=== PATIENT | male | born 1990 | race African-American/Black ===

== ENCOUNTER 2016-10-02 08:18 | Emergency (ER) | payer MEDICAID ==
[~2016-10-02] VITALS: Ht 175.3 cm; Wt 95.3 kg
[~2016-10-02 08:18] MED LIST: DAYQUIL COLD/FL1 SGL PO; PAXIL30 MG PO; PROAIR HFA0.09 MG/Ac IH; SEROQUEL100 MG PO; SEROQUEL300 MG PO; XANAX1 MG PO
[2016-10-02 08:22] VITALS: BP 116/66
--- NOTE | 2016-10-02 09:13 | NUR ---
PT AMBULATED TO BED 3.
--- NOTE | 2016-10-02 09:57 | NUR ---
PT AMBULATED OUT OF ROOM 3---WAS SEEN WALKING OUT OF THE ER
== END 2016-10-02 09:57 | disposition left against medical advice (07) ==
LOC: MED 08:18
DX: F41.9 Anxiety disorder, unspecified (principal); Z53.21 Procedure and treatment not carried out due to patient leaving prior to being seen by health care provider

== ENCOUNTER 2017-01-21 06:05 | Emergency (ER) | payer MEDICAID ==
[~2017-01-21] VITALS: Ht 175.3 cm; Wt 89.4 kg
[~2017-01-21 06:05] MED LIST changes: +ALBU-136 IH; +ALPR1TAB2 PO; -DAYQUIL COLD/FL1 SGL PO; +PARO30TA22 PO; -PAXIL30 MG PO; -PROAIR HFA0.09 MG/Ac IH; +QUET100T PO; -SEROQUEL100 MG PO; -SEROQUEL300 MG PO; -XANAX1 MG PO; +[UNRECOGNIZED DRUG - CODE] PO
[2017-01-21 06:11] VITALS: BP 123/71
--- NOTE | 2017-01-21 06:17 | NUR ---
PT TAKEN TO BED 5
--- NOTE | 2017-01-21 06:19 | NUR ---
Dr. Pham evaluating patient at bedside.
--- NOTE | 2017-01-21 06:20 | NUR ---
PATIENT IS A 26 Y/O MALE WHO PRESENTS TO THE ED C/O OF SORE THROAT. PATIENT REPORTS 9/10 ACHING PAIN THAT RADIATES ALL OVER THE BODY. PT REPORTS HOT SENSATION OVER BODY, HEADACHE, AND COUGHING X4 DAYS. PATIENT REPORTS SOB, DENIES N/V/D. PT AAOX4, RR EVEN/UNLABORED. PT REPOSITIONED FOR COMFORT, BED IN LOWEST POSITION. ER MD DR. GRAMAJO NOTIFIED. WILL CONTINUE TO MONITOR.
--- NOTE | 2017-01-21 06:25 | NUR ---
Patient discharged with v/s stable. Written and verbal after care instructions given and explained. Patient alert, oriented and verbalized understanding of instructions. Ambulatory with steady gait. All questions addressed prior to discharge. ID band removed. Patient advised to follow up with PMD. Rx of CODEINE/PROMETHAZINE 10MG-6.25MG/5ML & AZITHROMYCIN 250 MG given. Patient educated on indication of medication including possible reaction and side effects. Opportunity to ask questions provided and answered.
[2017-01-21 06:26] VITALS: BP 120/75
== END 2017-01-21 06:25 | disposition home or self-care (01) ==
LOC: MED 06:05
DX: J02.9 Acute pharyngitis, unspecified (principal); R09.89 Other specified symptoms and signs involving the circulatory and respiratory systems; F17.210 Nicotine dependence, cigarettes, uncomplicated; Z88.8 Allergy status to other drugs, medicaments and biological substances; Z91.018 Allergy to other foods
CPT/HCPCS: 99283

== ENCOUNTER 2017-03-26 13:38 | Emergency (ER) | payer MEDICAID ==
[~2017-03-26] VITALS: Ht 175.3 cm; Wt 88.9 kg
[2017-03-26 13:48] VITALS: BP 105/48
--- NOTE | 2017-03-26 13:52 | NUR ---
Patient to bed 08.
--- NOTE | 2017-03-26 14:04 | NUR ---
PATIENT PRESENTS TO ED WITH C/O NONPRODUCTIVE COUGH FOR 5 DAY . DENIES N/V/D; SKIN IS PINK/WARM/DRY; AAOX4 WITH EVEN AND STEADY GAIT; LUNGS CLEAR BL; HR EVEN AND REGULAR; PT DENIES ANY FEVER, CP, SOB AT THIS TIME; PATIENT STATES PAIN OF 0/10 AT THIS TIME; VSS; PATIENT POSITIONED FOR COMFORT; HOB ELEVATED; BEDRAILS UP X2; BED DOWN. ER MD MADE AWARE OF PT STATUS.
[2017-03-26] MEDS ORDERED: ALBUTEROL SULFATE/IPRATROPIU 3 ML SOL IH ONE (14:15)
[2017-03-26] MEDS ORDERED: predniSONE 20 MG TAB PO ONE (14:15)
--- NOTE | 2017-03-26 14:29 | NUR ---
Respiratory Therapist at bedside for respiratory intervention.
[2017-03-26 15:48] VITALS: BP 105/48
--- NOTE | 2017-03-26 15:49 | NUR ---
Patient discharged with v/s stable. Written and verbal after care instructions given and explained. Patient alert, oriented and verbalized understanding of instructions. Ambulatory with steady gait. All questions addressed prior to discharge. ID band removed. Patient advised to follow up with PMD. Rx of PREDNISONE, [facility] TUSSIN LONG ACTING COUGH SYRUP, ALBUTEROL given. Patient educated on indication of medication including possible reaction and side effects. Opportunity to ask questions provided and answered.PATIENT REFUSED TO TAKE PRESCRIPTIONS FOR PREDNISONE AND TUSSIN
== END 2017-03-26 15:49 | disposition home or self-care (01) ==
LOC: MED 13:38
DX: J20.9 Acute bronchitis, unspecified (principal); J45.909 Unspecified asthma, uncomplicated; F17.210 Nicotine dependence, cigarettes, uncomplicated; Z88.8 Allergy status to other drugs, medicaments and biological substances; Z88.6 Allergy status to analgesic agent; Z71.6 Tobacco abuse counseling
CPT/HCPCS: 99283; J7512; J7620

== ENCOUNTER 2017-05-19 12:22 | Emergency (ER) | payer MEDICAID ==
[~2017-05-19] VITALS: Ht 175.3 cm; Wt 89.4 kg
[2017-05-19 12:32] VITALS: BP 104/65
--- NOTE | 2017-05-19 14:15 | NUR ---
called to a bed no answer
== END 2017-05-19 14:15 | disposition left against medical advice (07) ==
LOC: MED 12:22
DX: R05 Cough (principal); Z53.21 Procedure and treatment not carried out due to patient leaving prior to being seen by health care provider

== ENCOUNTER 2017-05-20 10:03 | Emergency (ER) | payer MEDICAID ==
[~2017-05-20] VITALS: Ht 175.3 cm; Wt 90.3 kg
[2017-05-20 10:35] VITALS: BP 112/55
--- NOTE | 2017-05-20 10:40 | NUR ---
Patient ambulated to OF#3 at this time.
--- NOTE | 2017-05-20 10:48 | NUR ---
PATIENT PRESENTS TO ED WITH COUGH, BODY ACHES, HEADACHE X4-5 DAYS; LWBS YESTERDAY HX: BRONCHITIS, ASTHMA . PT STATES I TOOK SOME MUCINEX,IBUPROFEN. WITH N/V/D; SKIN IS PINK/WARM/DRY; AAOX4 WITH EVEN AND STEADY GAIT; LUNGS CLEAR BL; HR EVEN AND REGULAR; PT DENIES ANY FEVER; PATIENT STATES PAIN OF 8/10 AT THIS TIME; PATIENT POSITIONED FOR COMFORT; HOB ELEVATED; BEDRAILS UP X2; BED DOWN. ER MD MADE AWARE OF PT STATUS.NO SOB NOTED AT THIS TIME.
--- NOTE | 2017-05-20 10:54 | NUR ---
PT STANDUP AT THIS TIME CLAIMED I WILL GO THE DOCTOR IS NOT GIVING ME WHAT I WANT, ENCOURAGE TO STAY BUT PT JUST STANDUP AND LEAVE, DIDNT LISTEN TO ENCOURAGEMENT, WILL INFORM MD.
--- NOTE | 2017-05-20 11:10 | NUR ---
PATIENT ELOPED FROM FACILITY. DISCHARGE INSTRUCTIONS NOT GIVEN TO PATIENT. DR. MALDONADO NOTIFIED.
== END 2017-05-20 10:54 | disposition left against medical advice (07) ==
LOC: MED 10:03
DX: B34.9 Viral infection, unspecified (principal); J45.909 Unspecified asthma, uncomplicated; Z76.5 Malingerer [conscious simulation]; F17.210 Nicotine dependence, cigarettes, uncomplicated; Z79.899 Other long term (current) drug therapy; Z88.8 Allergy status to other drugs, medicaments and biological substances
CPT/HCPCS: 99281

== ENCOUNTER 2017-06-04 12:33 | Emergency (ER) | payer MEDICAID ==
[~2017-06-04] VITALS: Ht 180.3 cm; Wt 93.0 kg
[2017-06-04 12:41] VITALS: BP 127/69
--- NOTE | 2017-06-04 12:45 | NUR ---
PT AMBULATED TO BRIDGET
--- NOTE | 2017-06-04 12:55 | NUR ---
PATIENT PRESENTS TO ED WITH COUGH 4-5 DAYS; HEADACHE HX BRONCHITIS; DENIES N/V/D; SKIN IS PINK/WARM/DRY; AAOX4 WITH EVEN AND STEADY GAIT; LUNGS CLEAR BL; HR EVEN AND REGULAR; PT DENIES ANY FEVER, CP, OR SOB AT THIS TIME; PATIENT STATES PAIN OF 8/10 AT THIS TIME; VSS; PATIENT POSITIONED FOR COMFORT; ER MD MADE AWARE OF PT STATUS.
--- NOTE | 2017-06-04 13:02 | NUR ---
AAO PT BEING EVALUATED BY DR WINTER
[2017-06-04] MEDS ORDERED: ALBUTEROL SULFATE/IPRATROPIU 3 ML SOL IH ONE (13:15)
[2017-06-04] MEDS ORDERED: DEXAMETHASONE 10 MG/ML VIAL IM ONE (13:15)
--- NOTE | 2017-06-04 13:24 | NUR ---
AAO PT REFUSE [facility] AND [facility] [place], DR WINTER NOTIFIED
--- NOTE | 2017-06-04 13:29 | NUR ---
PT REFUSED [facility] TX. DR WINTER AWARE AND ROBERT GORMAN AWARE. PT AWAKE AND ALERT. NO SOB OR DISTRESS NOTED.
[2017-06-04 13:40] VITALS: BP 131/84
--- NOTE | 2017-06-04 13:40 | NUR ---
Patient discharged with v/s stable. Written and verbal after care instructions given and explained. Patient alert, oriented and verbalized understanding of instructions. Ambulatory with steady gait. All questions addressed prior to discharge. ID band removed. Patient advised to follow up with PMD. Rx of PROMETHAZINE, METHYLPREDNISOLONE, ALBUTEROL given. Patient educated on indication of medication including possible reaction and side effects. Opportunity to ask questions provided and answered.
== END 2017-06-04 13:40 | disposition home or self-care (01) ==
LOC: MED 12:33
DX: J45.909 Unspecified asthma, uncomplicated (principal); Z91.018 Allergy to other foods; Z88.8 Allergy status to other drugs, medicaments and biological substances; F12.10 Cannabis abuse, uncomplicated
CPT/HCPCS: 99283; J1100; J7620

== ENCOUNTER 2017-06-07 07:26 | Emergency (ER) | payer MEDICAID ==
[~2017-06-07] VITALS: Ht 180.3 cm; Wt 91.8 kg
[2017-06-07 07:38] VITALS: BP 115/54
--- NOTE | 2017-06-07 07:40 | NUR ---
PATIENT PRESENTS TO ED WITH C/O NON PRODUCTIVE COUGH AND HEADACHE . PT STATES HE WAS SEEN ON 06/04 AND WAS GIVEN DISHCARGE MEDICATIONS BUT HIS COUGH DID NOT IMPROVE . DENIES N/V/D; SKIN IS PINK/WARM/DRY; AAOX4 WITH EVEN AND STEADY GAIT; LUNGS CLEAR BL; HR EVEN AND REGULAR; PT DENIES ANY FEVER, CP, SOB, AT THIS TIME; PATIENT STATES PAIN OF 7/10 AT THIS TIME; VSS; PATIENT POSITIONED FOR COMFORT; HOB ELEVATED; BEDRAILS UP X2; BED DOWN. ER MD MADE AWARE OF PT STATUS.
--- NOTE | 2017-06-07 08:30 | NUR ---
LI GARVIN. PATIENT LEFT WITHOUT TAKING HIS DISCHARGE PAPERS AND INSTRUCTIONS. ER DR DOCTOR FERRIS
== END 2017-06-07 08:59 | disposition left against medical advice (07) ==
LOC: MED 07:26
DX: J40 Bronchitis, not specified as acute or chronic (principal); Z76.5 Malingerer [conscious simulation]; F17.210 Nicotine dependence, cigarettes, uncomplicated; Z79.899 Other long term (current) drug therapy; Z88.8 Allergy status to other drugs, medicaments and biological substances
CPT/HCPCS: 71045; 99283; Q0092

== ENCOUNTER 2017-07-07 13:49 | Emergency (ER) | payer OTHER, MEDICAID ==
[~2017-07-07] VITALS: Ht 175.3 cm; Wt 95.4 kg
[2017-07-07 14:04] VITALS: BP 123/68
--- NOTE | 2017-07-07 14:04 | NUR ---
PT AMBULATES TO BED 11
--- NOTE | 2017-07-07 14:08 | NUR ---
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 ER MD MADE AWARE OF PT STATUS.
--- NOTE | 2017-07-07 14:27 | NUR ---
Patient being evaluated by DR MALDONADO at bedside.
[2017-07-07 14:51] VITALS: BP 111/55
--- NOTE | 2017-07-07 14:51 | NUR ---
Patient discharged with v/s stable. Written and verbal after care instructions given and explained. Patient alert, oriented and verbalized understanding of instructions. Ambulatory with steady gait. All questions addressed prior to discharge. ID band removed. Patient advised to follow up with PMD. Rx of NAPROSYN given. Patient educated on indication of medication including possible reaction and side effects. Opportunity to ask questions provided and answered. PT REFUSE TO SIGN DC PAPER & LEAVE WITH OUT DOCUMENTS. Addendum: 07/07/17 at 1458 by [facility] REPORT DR MALDONADO.
== END 2017-07-07 14:51 | disposition home or self-care (01) ==
LOC: MED 13:49
DX: S60.222A Contusion of left hand, initial encounter (principal); J45.909 Unspecified asthma, uncomplicated; Z91.018 Allergy to other foods; Z88.8 Allergy status to other drugs, medicaments and biological substances; X58.XXXA Exposure to other specified factors, initial encounter; Y93.89 Activity, other specified; Y92.89 Other specified places as the place of occurrence of the external cause; Y99.8 Other external cause status
CPT/HCPCS: 73130; 99284; Q0092

== ENCOUNTER 2017-08-27 10:08 | Emergency (ER) | payer MEDICAID, OTHER ==
[~2017-08-27] VITALS: Ht 175.3 cm; Wt 94.1 kg
[2017-08-27 10:16] VITALS: BP 119/65
--- NOTE | 2017-08-27 10:16 | NUR ---
Note undone in EDM - 08/27/17 at 1039 by [email or web address] 27 YO M BIB SELF W/ C/O ANXIETY AND RAN OUT OF ALPRAZOLAM. PT DENIED HAYES AT THIS TIME. DENIED NAUSEA AT THIS TIME. PT STATES HE HAS A DRY COUGH, BUT HAVE NOT BEEN ABLE TO ASSESS A COUGH AT THIS TIME. PT IS ON ANTIBIOTIC REGIMEN AT THIS TIME. PT A&O X4. GCS 15. CMS INTACT. ABD SOFT, NON-TENDER. PT TEXTING ON HIS PHONE DURING ASSESSMENT. STATES HE IS FEELING DEPRESSED, HAS NOT BEEN SHOWERING OR WANTING TO BE AROUND PEOPLE SINCE HE RAN OUT OF MEDS 4-5 DAYS AGO. STATES HE CANNOT GET AN APPT WITH HIS PCP FOR ANOTHER MONTH. STATES HE JUST WANTS MED REFILL. NORMAL PHYSICAL ASSESSMENT. ER MD MALDONADO NOTIFIED OF PT STATUS. PT NEEDS MET. SAFETY PRECAUTIONS IN PLACE. WILL CONTINUE TO MONITOR.
--- NOTE | 2017-08-27 10:23 | NUR ---
PT AMBULATED TO BED 11
--- NOTE | 2017-08-27 10:25 | NUR ---
27 YO M BIB SELF W/ C/O ANXIETY AND RAN OUT OF ALPRAZOLAM. PT DENIED HAYES AT THIS TIME. DENIED NAUSEA AT THIS TIME. PT STATES HE HAS A DRY COUGH, BUT HAVE NOT BEEN ABLE TO ASSESS A COUGH AT THIS TIME. PT IS ON ANTIBIOTIC REGIMEN AT THIS TIME. PT A&O X4. GCS 15. CMS INTACT. ABD SOFT, NON-TENDER. PT TEXTING ON HIS PHONE DURING ASSESSMENT. STATES HE IS FEELING DEPRESSED, HAS NOT BEEN SHOWERING OR WANTING TO BE AROUND PEOPLE SINCE HE RAN OUT OF MEDS 4-5 DAYS AGO. STATES HE CANNOT GET AN APPT WITH HIS PCP FOR ANOTHER MONTH. STATES HE JUST WANTS MED REFILL. NORMAL PHYSICAL ASSESSMENT. ER MD MALDONADO NOTIFIED OF PT STATUS. PT NEEDS MET. SAFETY PRECAUTIONS IN PLACE. WILL CONTINUE TO MONITOR.
[2017-08-27 10:56] VITALS: BP 119/65
--- NOTE | 2017-08-27 10:56 | NUR ---
Patient discharged with v/s stable. Written and verbal after care instructions given and explained. Patient alert, oriented and verbalized understanding of instructions. Ambulatory with steady gait. All questions addressed prior to discharge. ID band removed. Patient advised to follow up with PMD. Rx of Alprazolam given. Patient educated on indication of medication including possible reaction and side effects. Opportunity to ask questions provided and answered.
== END 2017-08-27 10:56 | disposition home or self-care (01) ==
LOC: MED 10:08
DX: F41.9 Anxiety disorder, unspecified (principal); J45.909 Unspecified asthma, uncomplicated; F20.9 Schizophrenia, unspecified; F32.9 Major depressive disorder, single episode, unspecified; Z88.8 Allergy status to other drugs, medicaments and biological substances
CPT/HCPCS: 99284

== ENCOUNTER 2017-09-29 11:34 | Outpatient (CLI) | payer MEDICAID | END 2017-09-29 20:09 | disposition home or self-care (01) | LOC: MRD 11:34 | DX: M25.562 Pain in left knee (principal); M25.561 Pain in right knee; J45.909 Unspecified asthma, uncomplicated; Z87.891 Personal history of nicotine dependence; Z79.899 Other long term (current) drug therapy; W19.XXXA Unspecified fall, initial encounter; Y93.89 Activity, other specified; Y92.89 Other specified places as the place of occurrence of the external cause; Y99.8 Other external cause status | CPT/HCPCS: 73562 ==

== ENCOUNTER 2018-01-21 10:12 | Emergency (ER) | payer MEDICAID ==
[~2018-01-21] VITALS: Ht 172.7 cm; Wt 104.3 kg
--- NOTE | 2018-01-21 10:14 | NUR ---
PT AMBULATED TO ER BED 03
[2018-01-21 10:17] VITALS: BP 128/67
--- NOTE | 2018-01-21 10:19 | NUR ---
27y/m bib self c/o frontal lobe pressure type headache x today; denies nausea or injury; bed down; bedrail up x 1; er md aware and notified of pt status. hx; anxiety, bipolar, schizophrenia rx; xanax
[2018-01-21] MEDS ORDERED: KETOROLAC 60 MG/2 ML VIAL IM ONE (10:20)
--- NOTE | 2018-01-21 10:20 | NUR ---
Patient being evaluated by physician at bedside.
--- NOTE | 2018-01-21 10:41 | NUR ---
pt refuse iv toradol med at this time, md calhoun aware and notified
--- NOTE | 2018-01-21 10:59 | NUR ---
Note undone in EDM - 01/21/18 at 1102 by MEDFL Patient discharged with v/s stable. Written and verbal after care instructions given and explained. Patient alert, oriented and verbalized understanding of instructions. Ambulatory with steady gait. All questions addressed prior to discharge. ID band removed. Patient advised to follow up with PMD. Rx of motrin, keflex and bactrium ds given. Patient educated on indication of medication including possible reaction and side effects. Opportunity to ask questions provided and answered.
[2018-01-21 11:46] VITALS: BP 126/65
--- NOTE | 2018-01-21 11:46 | NUR ---
Patient discharged with v/s stable. Written and verbal after care instructions given and explained. Patient alert, oriented and verbalized understanding of instructions. Ambulatory with steady gait. All questions addressed prior to discharge. ID band removed. Patient advised to follow up with PMD. Rx of phenergan fortis, prednisione, motrin given. Patient educated on indication of medication including possible reaction and side effects. Opportunity to ask questions provided and answered.
== END 2018-01-21 11:46 | disposition home or self-care (01) ==
LOC: MED 10:12
DX: R51 Headache (principal); R05 Cough; R11.2 Nausea with vomiting, unspecified; F20.9 Schizophrenia, unspecified; Z88.8 Allergy status to other drugs, medicaments and biological substances; Z79.899 Other long term (current) drug therapy
CPT/HCPCS: 99283; J1885

== ENCOUNTER 2018-09-05 16:13 | Emergency (ER) | payer MEDICAID ==
[~2018-09-05] VITALS: Ht 175.3 cm; Wt 102.1 kg
[2018-09-05 16:23] VITALS: BP 109/72
--- NOTE | 2018-09-05 16:34 | NUR ---
[age]/M c/o BODY ACHE ,cough and cold symptoms x 4 days. PATIENT STATES PAIN OF 9/10 AT THIS TIME; PATIENT POSITIONED FOR COMFORT; HOB ELEVATED; BEDRAILS UP X1; BED DOWN. ER MD MADE AWARE OF PT STATUS.
--- NOTE | 2018-09-05 17:15 | NUR ---
PATIENT LEFT WITHOUT BEING SEEN BY . NO FURTHER CARE PROVIDED FOR PATIENT.
== END 2018-09-05 17:15 | disposition left against medical advice (07) ==
LOC: MED 16:13
DX: R05 Cough (principal); Z53.21 Procedure and treatment not carried out due to patient leaving prior to being seen by health care provider

== ENCOUNTER 2019-02-10 12:45 | Emergency (ER) | payer MEDICAID ==
[~2019-02-10] VITALS: Ht 175.3 cm; Wt 98.9 kg
[2019-02-10 12:50] VITALS: BP 121/58
[2019-02-10 13:05] VITALS: BP 121/58
== END 2019-02-10 13:18 | disposition home or self-care (01) ==
LOC: MED 12:45
DX: J20.9 Acute bronchitis, unspecified (principal); F17.210 Nicotine dependence, cigarettes, uncomplicated; Z79.899 Other long term (current) drug therapy; Z88.8 Allergy status to other drugs, medicaments and biological substances
CPT/HCPCS: 99281

== ENCOUNTER 2020-09-10 23:34 | Emergency (ER) | payer MEDICAID ==
[~2020-09-10] VITALS: Ht 177.8 cm; Wt 94.8 kg
[~2020-09-10 23:34] MED LIST changes: -PRED20TA5 PO
[2020-09-10 23:38] VITALS: BP 117/79
--- NOTE | 2020-09-10 23:42 | NUR ---
PATIENT AMBUALTED TO LOBBY WITH STEADY GAIT.
--- NOTE | 2020-09-11 00:50 | NUR ---
PT WAS TAKEN TO BED 10
--- NOTE | 2020-09-11 01:09 | NUR ---
see complete assessment.
[2020-09-11 01:10] VITALS: BP 122/81
--- NOTE | 2020-09-11 01:40 | NUR ---
Dr. Ng with pt for MSE
[2020-09-11] MEDS ORDERED: PRED20TA5 PO (02:13)
--- NOTE | 2020-09-11 02:34 | NUR ---
RAD AT BEDSIDE
--- NOTE | 2020-09-11 02:55 | NUR ---
d/c with VSS. d/c education given. no rx given. opportunity to ask questions given and answered.
== END 2020-09-11 02:50 | disposition home or self-care (01) ==
LOC: MED 23:34
DX: J20.9 Acute bronchitis, unspecified (principal); J45.909 Unspecified asthma, uncomplicated; Z79.899 Other long term (current) drug therapy; Z88.8 Allergy status to other drugs, medicaments and biological substances
CPT/HCPCS: 71045; 99283

== ENCOUNTER → 2020-09-10 | Emergency (ER) | payer MEDICAID ==
[~2020-09-10] MED LIST changes: +ALBU-118 IH; -ALBU-136 IH; +PRED20TA5 PO
== END | disposition home or self-care (01) ==
LOC: MED 06:10
DX: Z53.21 Procedure and treatment not carried out due to patient leaving prior to being seen by health care provider (principal)

== ENCOUNTER 2022-01-23 11:31 | Emergency (ER) | payer MEDICAID ==
[~2022-01-23 11:31] MED LIST changes: +PRED20TA5 PO
--- NOTE | 2022-01-23 11:39 | NUR ---
called name, no answer
--- NOTE | 2022-01-23 11:48 | NUR ---
left before triage at this time
== END 2022-01-23 11:48 | disposition left against medical advice (07) ==
LOC: MED 11:31
DX: R06.02 Shortness of breath (principal); Z53.21 Procedure and treatment not carried out due to patient leaving prior to being seen by health care provider

== ENCOUNTER 2022-10-13 05:20 | Emergency (ER) | payer MEDICAID ==
[~2022-10-13] VITALS: Ht 175.3 cm; Wt 104.3 kg
[2022-10-13 05:29] VITALS: BP 110/60
--- NOTE | 2022-10-13 05:30 | NUR ---
Note undone in EDM - 10/13/22 at 0600 by [email or web address] Patient discharged with v/s stable. Written and verbal after care instructions given and explained. Patient verbalized understanding. PER DR. BLANCO PT WAS SEAKING PROMETHAZINE WITH CODIENE Ambulatory with steady gait. All questions addressed prior to discharge. Advised to follow up with PMD.
--- NOTE | 2022-10-13 05:38 | NUR ---
PT TAKEN TO BED 4
--- NOTE | 2022-10-13 05:40 | NUR ---
Dr. Montero examining patient.
[2022-10-13 05:50] VITALS: BP 110/60
--- NOTE | 2022-10-13 05:50 | NUR ---
Patient discharged with v/s stable. Written and verbal after care instructions given and explained. Patient verbalized understanding. PER DR. BLANCO PT WAS SEAKING OUT PROMETHAZINE WITH CODIENE Ambulatory with steady gait. All questions addressed prior to discharge. Advised to follow up with PMD.
== END 2022-10-13 05:50 | disposition home or self-care (01) ==
LOC: MED 05:20
DX: J06.9 Acute upper respiratory infection, unspecified (principal); F19.10 Other psychoactive substance abuse, uncomplicated; F17.210 Nicotine dependence, cigarettes, uncomplicated; F12.10 Cannabis abuse, uncomplicated; J45.909 Unspecified asthma, uncomplicated; Z79.899 Other long term (current) drug therapy; Z88.8 Allergy status to other drugs, medicaments and biological substances
CPT/HCPCS: 99281

== ENCOUNTER 2023-02-24 10:19 | Emergency (ER) | payer MEDICAID ==
[~2023-02-24] VITALS: Ht 177.8 cm; Wt 95.3 kg
[2023-02-24 10:21] VITALS: BP 136/84; PULSE 88; RESP 17; TEMP 97.4; O2SAT 98
[2023-02-24] MEDS ORDERED: IBUP-2213 PO ×2 (20:09→20:18)
[2023-02-24] MEDS ORDERED: BACI-418 TP ×2 (20:09→20:18)
== END 2023-02-24 11:07 | disposition left against medical advice (07) ==
LOC: MED 10:19
DX: M79.604 Pain in right leg (principal); Z53.21 Procedure and treatment not carried out due to patient leaving prior to being seen by health care provider
CPT/HCPCS: 99281

== ENCOUNTER 2023-02-24 16:26 | Emergency (ER) | payer MEDICAID ==
[~2023-02-24] VITALS: Ht 175.3 cm; Wt 108.9 kg
[2023-02-24 16:47] VITALS: BP 97/59; PULSE 58; RESP 20; TEMP 98.5; O2SAT 99
[2023-02-24] MEDS ORDERED: IBUPROFEN 600 MG TAB PO ONE (19:10)
[2023-02-24] MEDS ORDERED: BACI-418 TP ×2 (20:09→20:18)
[2023-02-24] MEDS ORDERED: IBUP-2213 PO ×2 (20:09→20:18)
[2023-02-24 20:37] VITALS: BP 97/59; PULSE 58; RESP 20; TEMP 98.5; O2SAT 99
== END 2023-02-24 20:37 | disposition home or self-care (01) ==
LOC: MED 16:26
DX: S83.91XA Sprain of unspecified site of right knee, initial encounter (principal); S66.912A Strain of unspecified muscle, fascia and tendon at wrist and hand level, left hand, initial encounter; S90.01XA Contusion of right ankle, initial encounter; S30.810A Abrasion of lower back and pelvis, initial encounter; J45.909 Unspecified asthma, uncomplicated; Z79.899 Other long term (current) drug therapy; Z79.1 Long term (current) use of non-steroidal anti-inflammatories (NSAID); Z79.2 Long term (current) use of antibiotics; Z88.0 Allergy status to penicillin; Z88.8 Allergy status to other drugs, medicaments and biological substances; Z91.018 Allergy to other foods; V09.9XXA Pedestrian injured in unspecified transport accident, initial encounter; Y93.89 Activity, other specified; Y92.410 Unspecified street and highway as the place of occurrence of the external cause; Y99.8 Other external cause status
CPT/HCPCS: 73110; 73502; 73562; 73610; 99284

== ENCOUNTER 2023-03-12 08:41 | Emergency (ER) | payer MEDICAID, OTHER ==
[~2023-03-12] VITALS: Ht 175.3 cm; Wt 108.4 kg
[~2023-03-12 08:41] MED LIST changes: +BACI-418 TP; +IBUP-2213 PO
[2023-03-12 08:47] VITALS: BP 135/70; PULSE 58; RESP 15; TEMP 98; O2SAT 100
[2023-03-12] MEDS ORDERED: NAPR-54 PO ×2 (11:07→11:11)
[2023-03-12] MEDS ORDERED: PRED20TA5 PO (11:11)
[2023-03-12] MEDS ORDERED: ACET237L3 PO (11:11)
[2023-03-12] MEDS ORDERED: ALBU0.0912 INH (11:11)
[2023-03-12] MEDS ORDERED: KETOROLAC 30 MG/ML VIAL IM ONE (11:20)
[2023-03-12] MEDS ORDERED: BENZ200C4 PO (11:44)
[2023-03-12] MEDS ORDERED: PROM118S5 PO (12:14)
== END 2023-03-12 12:19 | disposition home or self-care (01) ==
LOC: MED 08:41
DX: J20.9 Acute bronchitis, unspecified (principal); M25.532 Pain in left wrist; J45.909 Unspecified asthma, uncomplicated; Z88.0 Allergy status to penicillin; Z88.8 Allergy status to other drugs, medicaments and biological substances; Z79.899 Other long term (current) drug therapy
CPT/HCPCS: 73110; 73130; 99284; J1885